=== PATIENT | female | born 1990 | race Hispanic/Latino ===

== ENCOUNTER 2025-06-18 14:08 | Emergency (ER) | payer BC, MEDICAID ==
[~2025-06-18] VITALS: Ht 165.1 cm; Wt 140.6 kg
[2025-06-18 14:09] VITALS: TEMP 98.2
[2025-06-18 14:40] LABS: IMMATURE GRANULOCYTE ABSOLUTE 0.03 K/uL (0-1); NUCLEATED RED BLOOD CELLS 0.0 % (0.0-0.19); PLATELET COUNT (AUTO) 262 K/uL (130-400); RED BLOOD CELL COUNT(AUTO) 4.57 MIL/uL (4.00-5.50); RED CELL DISTRIBUTION WIDTH 12.9 % (11.0-15.5); WHITE BLOOD COUNT (AUTO) 9.8 K/uL (4.8-10.8)
[2025-06-18 14:51] LABS: CREATININE 0.8 mg/dL (0.5-1.0); GLOMERULAR FILTR. RATE CALC 98.0 mL/min (>90); GLUCOSE,RANDOM 104.0 mg/dL (70-105); SODIUM SERUM 138.0 mmol/L (136-145); UREA NITROGEN, BLOOD 14.0 mg/dL (7-18)
[2025-06-18 14:56] LABS: CREATINE KINASE, TOTAL 52.0 U/L (21-232)
--- NOTE | 2025-06-18 15:32 | NUR ---
PATIENT IN ER LOBBY. PENDING IV SITE & CONSENT FOR CT EXAM.
[2025-06-18 16:10] VITALS: BP 161/102; PULSE 80; RESP 17; O2SAT 98
--- NOTE | 2025-06-18 16:15 | ERN ---
General Chief Complaint: Chest Pain Stated Complaint: CP Time Seen by MD: 14:09 Time Seen by Midlevel: 14:09 Source: patient History of Present Illness Initial Comments The patient is a morbidly obese 34-year-old female with a past medical history of anxiety presenting to the emergency department for evaluation of intermittent chest pain that has been ongoing for one month. The chest pain radiates to the left arm. She was seen at [facility] with the same complaint both will u ltimately discharged with a negative workup and was told to follow up with pipe organ technician for further evaluation. Allergies: Coded Allergies: Penicillins (Unverified Allergy, Unknown, 06/18/25) Past Medical History Past Medical History: No Pertinent History Past Surgical History: Cholecystectomy ROS Dictation CONSTITUTIONAL: Negative except for HPI HEAD/FACE: Negative except for HPI EENT: Negative except for HPI RESPIRATORY: Negative except for HPI GASTROINTESTINAL/ABDOMINAL: Negative except for HPI GENITOURINARY: Negative except for HPI MUSCULOSKELETAL: Negative except for HPI INTEGUMENTARY: Negative except for HPI NEUROLOGICAL/PSYCH: Negative except for HPI HEMATOLOGIC/LYMPHATIC: Negative except for HPI All Systems Negative, Except as noted above. 13 point review of systems assessed and all negative except for above. Physical Exam Physical Exam Dictation Vital Signs reviewed General Appearance: Alert, oriented x 3, no acute distress, well developed, nourished. Head and Face: non-traumatic. Eyes: PERRL, pink conjunctivas, eyelid no trauma, anterior chamber with arcus senilis. Ears: Pinnas intact and no signs of trauma or erythema ear canals clear and no discharge TM no erythema Nose: No discharge, no bleeding. Oropharynx: Mouth normal, tongue pink, pharynx clear,no erythema, tonsils no exudates, no abscesses noted, mucous membrane moist Neck: Supple, non-tender, no thyromegaly, no masses, no JVD, no bruits Breast:Deferred Chest:No tenderness, no crepitus, no paradoxical movement, no retractions Lungs:Clear, well-ventilated, symmetric, no rales, no wheezing, no rhonchi, no stridor, good breath sounds bilaterally Heart: Regular rate, regular rhythm, no murmur, no gallops Vascular: no peripheral edema, Abdomen: Soft, positive bowel sounds, nondistended, no guarding, nontender, no rebound, no masses no hepatomegaly, no splenomegaly, no Buckley's sign, no hernias. Rectal: Deferred Genital: Deferred Neurological: Normal speech, motor function intact, sensory function intact Musculoskeletal: Neck nontender, full range of motion, back nontender, full range of motion, Extremities: nontender, full range of motion Skin: Color pink, dry, no turgor, no rash, no lacerations, no abrasions, no contusions. Lymphatic: Deferred Results Laboratory and Microbiology Lab and Micro Result Laboratory Tests Test 06/18/25 14:36 White Blood Count 9.8 K/uL (4.8-10.8) Red Blood Count 4.57 MIL/uL (4.00-5.50) Hemoglobin 13.0 g/dL (12.0-16.0) Hematocrit 39.0 % (36-48) Mean Corpuscular Volume 85.3 fL (79-99) Mean Corpuscular Hemoglobin 28.4 pg (27.0-33.0) Mean Corpuscular Hemoglobin Concent 33.3 g/dL (32.0-36.0) Red Cell Distribution Width 12.9 % (11.0-15.5) Platelet Count 262 K/uL (130-400) Mean Platelet Volume 10.8 fL (7.5-10.5) H Immature Granulocyte % (Auto) 0.3 % (0-1) Neutrophils (%) (Auto) 72.3 % (40.0-77.0) Lymphocytes (%) (Auto) 18.5 % (21.0-51.0) L Monocytes (%) (Auto) 5.9 % (3.0-13.0) Eosinophils (%) (Auto) 2.8 % (0.0-8.0) Basophils (%) (Auto) 0.2 % (0.0-5.0) Neutrophils # (Auto) 7.1 K/uL (1.8-7.7) Lymphocytes # (Auto) 1.8 K/uL (1.0-4.8) Monocytes # (Auto) 0.6 K/uL (0.1-1.0) Eosinophils # (Auto) 0.27 K/uL (0.00-0.70) Basophils # (Auto) 0.02 K/uL (0.00-0.20) Absolute Immature Granulocyte (auto 0.03 K/uL (0-1) Nucleated Red Blood Cells 0.0 % (0.0-0.19) Sodium Level 138 mmol/L (136-145) Potassium Level 3.9 mmol/L (3.5-5.1) Chloride Level 105 mmol/L (101-111) Carbon Dioxide Level 29 mmol/L (21-32) Blood Urea Nitrogen 14 mg/dL (7-18) Creatinine 0.8 mg/dL (0.5-1.0) Glomerular Filtration Rate Calc 98 mL/min (>90) Random Glucose 104 mg/dL (70-105) Total Calcium 8.5 mg/dL (8.5-10.1) Magnesium Level 2.10 mg/dL (1.80-2.40) Total Creatine Kinase 52 U/L (21-232) Troponin I High Sensitivity 4 ng/L (4-50) B-Type Natriuretic Peptide 11 pg/mL (0-100) Serum Test, Qualitative NEGATIVE (NEGATIVE) Labs Reviewed?: Yes MDM MDM: Differential diagnosis: Acute coronary syndrome, dehydration, electrolyte abnormality There are no social concerns with this patient. Prescription drug management Prescriptions will include: Medical management and examination interpretation discussions were had by me with other qualified healthcare professionals as indicated for the patient's care. ED Course Orders Procedure Category Date Status Time Cbc With Differential LAB 06/18/25 Complete 14:09 Basic Metabolic Panel LAB 06/18/25 Complete 14:09 B-Type Natriuretic LAB 06/18/25 Complete Peptide 14:09 Creatine Kinase, Total LAB 06/18/25 Complete 14:09 Drug Screen Urine LAB 06/18/25 Logged 14:09 Testing, LAB 06/18/25 Complete Serum Hcg 14:09 Magnesium LAB 06/18/25 Complete 14:09 Urinalysis Profile LAB 06/18/25 Logged 14:09 Troponin I High LAB 06/18/25 Complete Sensitivity 14:09 12 Lead Ekg Tracing- EKG 06/18/25 Logged Technical 14:17 Ct Chest Pe Protocol CT 06/18/25 Resulted Wwo Cont 14:33 Iohexol (Omnipaque) PHA 06/18/25 Complete 16:48 Current Medications Medications (Trade) Dose Ordered Sig/Ricky Route PRN Reason Start Time Stop Time Status Last Admin Dose Admin Iohexol (Omnipaque) 35,000 mg STK-MED ONCE IV 06/18/25 16:48 06/18/25 16:48 DC Vital Signs Date Time Temp Pulse Resp B/P (MAP) Pulse Ox O2 Delivery O2 Flow Rate FiO2 06/18/25 16:10 80 17 161/102 98 Room Air* 0 21 06/18/25 14:09 98.2 89 16 170/85 98 Room Air DX & DISP Disposition: Discharge Departure Impression: Primary Impression: Non-cardiac chest pain Condition: Stable Additional Instructions: Today you were evaluated in the emergency department for chest pain and palpitations. We repeated a complete cardiac workup, including blood tests, EKG and a CT angiogram of the chest to rule out blood clots in the lungs. All of your results were normal and reassuring. Your EKG in the emergency department is unremarkable and shows no signs of a heart attack. Your troponin level was normal. At this time there was no evidence of a heart attack, blood clot, or other emergent condition requiring hospitalization. Follow up with your pipe organ technician as scheduled. Return to the ER if you develop worsening chest pain, shortness of breath, or any other concerning symptoms. Follow up with your primary care doctor in 2-3 days for repeat evaluation. Referrals: DULCE ARTIS (PCP) Time of Disposition: 18:44 I have reviewed the case, and I agree with, Diagnosis and Plan I performed the substantive portion of the visit. I have reviewed and personally made and approve the management plan that is documented in the note by myself or the ZIYAD. I acknowledge for responsibility for the patient's m anagement plan. MATEUSZ CRISTOBAL Jun 18, 2025 16:15
[2025-06-18] MEDS ORDERED: IOHEXOL 350 MG/ML 100ML INFUS..BTL IV ONE (16:48)
--- NOTE | 2025-06-18 18:24 | HMCIMG ---
EXAM: CTA Chest with and without Intravenous Contrast for PE evaluation CLINICAL HISTORY: elevated d-dimer r/o pe TECHNIQUE: Axial CTA images of the chest with and without intravenous contrast using a pulmonary embolism protocol. Multiplanar reconstructed images were created and reviewed. CONTRAST: None. was administered without incident. COMPARISON: None provided. FINDINGS: PULMONARY ARTERIES: No evidence of central or segmental pulmonary embolism is seen. AORTA: There is no evidence for aneurysm or dissection of the thoracic aorta. LUNGS: The lungs appear clear. PLEURAL SPACES: No pneumothorax evident. No pleural effusions. HEART: Heart size is within normal limits. No significant pericardial effusion. LYMPH NODES: No lymphadenopathy is evident. BONES: No focal osseous abnormality or acute fracture. UPPER ABDOMEN: Images of the upper abdomen are unremarkable. IMPRESSION: No pulmonary embolus. No thoracic aortic aneurysm or dissection. No pulmonary infiltrates or pleural effusions. /Ralph
--- NOTE | 2025-06-18 20:11 | EKG ---
[facility] Test Date: 2025-06-18 Test Time: 14:09:52 Pat Name: FREDDIE SQUIRES Department: ED Room: Gender: F Supervisor [employer]: Counts include 234 beds at the [facility] : 1990 Requested By: MANUEL MCLAIN Order Number: [id number] Reading MD: Marline Lyons Measurements Intervals [place] Rate: 89 P: 64 [place]: 127 QRS: 21 QRSD: 92 T: 59 QT: 383 QTc: 467 Interpretive Statements Sinus rhythm Low voltage, precordial leads No previous ECG available for comparison Electronically Signed On 06-21-2025 12:39:00 CDT by Marline Lyons Please click the below link to view image of tracing.
== END 2025-06-18 19:01 | disposition home or self-care (01) ==
LOC: EDH 14:08
DX: R07.89 Other chest pain (principal); E66.01 Morbid (severe) obesity due to excess calories; Z88.0 Allergy status to penicillin; Z90.49 Acquired absence of other specified parts of digestive tract
CPT/HCPCS: 99284; 71270; 82550; 83735; 84484; 80048; 83880; 84703; 85025; 36415; 93005; Q9967